=== PATIENT | female | born 1950 | race Caucasian/White ===

== ENCOUNTER → 2021-04-10 07:47 | Outpatient (CLI) | payer MEDICARE, SELFPAY ==
--- NOTE | 2021-04-10 07:51 | MM_ITS ---
PROCEDURE INFORMATION: Exam: MG Bilateral Screening 3D Mammography Exam date and time: 04/10/2021 7:51 AM Age: 70 years old Clinical indication: Encounter for screening mammogram for malignant neoplasm of breast. Family history of breast carcinoma. TECHNIQUE: Imaging protocol: Bilateral screening tomosynthesis and 2D mammography including computer-aided detection (CAD) when performed. COMPARISON: 1. MG DMSB DIGITAL MAMM-SCREEN BILATERAL 07/15/2011 10:03 AM 2. MG DIGMAMMS MAMMOGRAM SCREEN- OIL PIPELINE DISPATCHER N/C 08/09/2008 10:51 AM 3. OT DIGMAMMS MAMMOGRAM SCREEN- OIL PIPELINE DISPATCHER N/C 11/03/2005 10:51 AM FINDINGS: MAMMOGRAPHY: Breast composition: There are scattered areas of fibroglandular density. Mass: No suspicious masses. Architectural distortion: No suspicious distortion. Calcifications: No suspicious calcifications. Asymmetric density: None. Skin thickening: None. Axillary adenopathy: None. IMPRESSION: No mammographic evidence of malignancy. Annual screening is recommended unless otherwise clinically indicated. ASSESSMENT: BI-RADS Category 1: Negative
== END ==
PROVIDERS: PCP Nurse Practitioner; Visit Provider Nurse Practitioner
DX: Z12.31 Encounter for screening mammogram for malignant neoplasm of breast (principal)
CPT/HCPCS: 77063; 77067

== ENCOUNTER → 2021-07-26 09:43 | Outpatient (CLI) | payer MEDICARE, SELFPAY ==
--- NOTE | 2021-07-26 | US_ITS ---
PROCEDURE INFORMATION: Exam: US Left Breast, Complete Exam date and time: 07/26/2021 10:34 AM Age: 70 years old Clinical indication: Left; Patient HX: Lt breast pain-- neg mamm recently TECHNIQUE: Imaging protocol: Complete ultrasound of all four quadrants of the Left breast and the retroareolar regions, including ultrasound of the axilla when performed. COMPARISON: No relevant recent comparison exams are available. FINDINGS: Breast: High resolution sonography of the LEFT breast demonstrates 4 x 4 x 2 mm solid nodule with fatty hilum in the LEFT breast at 9 o'clock position 2 cm from the nipple. Oval lymph nodes nodes with a fatty hilum in LEFT axilla. IMPRESSION: 1. Solid nodule in the LEFT breast at 9 o'clock position measuring 4 mm most likely representing and inframammary lymph node. 2. Recommend short interval follow-up and/or biopsy. ASSESSMENT: BI-RADS 0: Recommend short interval follow-up and/or biopsy.
--- NOTE | 2021-07-26 09:50 | US_ITS ---
PROCEDURE INFORMATION: Exam: US Right Breast, Complete Exam date and time: 07/26/2021 10:27 AM Age: 70 years old Clinical indication: Right; Patient HX: Neg mamm recently-- RT breast pain; Additional info: Family h/o carcinoma TECHNIQUE: Imaging protocol: Complete ultrasound of all four quadrants of the Right breast and the retroareolar regions, including ultrasound of the axilla when performed. COMPARISON: No relevant recent comparison exams are available. FINDINGS: Breast: High resolution sonography of the RIGHT breast is unremarkable. No discrete mass or fluid collection. Oval lymph nodes nodes with a fatty hilum in RIGHT axilla. IMPRESSION: Normal study. ASSESSMENT: BI-RADS 1: Negative: There is nothing to comment on (likelihood of cancer essentially 0%)
== END ==
PROVIDERS: PCP Nurse Practitioner; Visit Provider Nurse Practitioner
DX: N64.4 Mastodynia (principal)
CPT/HCPCS: 76641

== ENCOUNTER → 2021-09-30 09:21 | Outpatient (CLI) | payer MEDICARE, SELFPAY ==
--- NOTE | 2021-09-30 09:24 | US_ITS ---
PROCEDURE INFORMATION: Exam: US Left Breast, Complete Exam date and time: 09/30/2021 9:33 AM Age: 70 years old Clinical indication: Short-term follow-up for a left breast mass TECHNIQUE: Imaging protocol: Complete ultrasound of all four quadrants of the Left breast and the retroareolar regions, including ultrasound of the axilla when performed. COMPARISON: US BREAST LT COMPLETE 07/26/2021 10:34 AM FINDINGS: Breast: Sonographic images of the left breast including the retroareolar region, all 4 quadrants and the axilla do not demonstrate any solid or cystic masses. Cursors were placed over normal fibroglandular structures in the left 9 o'clock axis 2 cm from the nipple. No architectural distortion or acoustical shadowing. No skin thickening or axillary adenopathy. IMPRESSION: No sonographic evidence of malignancy. Annual mammographic screening is recommended in March 2022 unless otherwise clinically indicated. ASSESSMENT: BI-RADS Category 1: Negative
== END ==
PROVIDERS: PCP Nurse Practitioner; Visit Provider Nurse Practitioner
DX: D48.62 Neoplasm of uncertain behavior of left breast (principal)
CPT/HCPCS: 76641